=== PATIENT | female | born 1965 | race Caucasian/White ===

== ENCOUNTER 2017-06-01 19:02 | Emergency (ER) | payer BC ==
[2017-06-01] MEDS: PROPARACAINE HCL 0.5% OPHT SOLN 15 ML BTL EACH EYE (19:45)
== END 2017-06-01 20:41 | disposition home or self-care (01) ==
LOC: PHED 19:02
DX: H54.61 Unqualified visual loss, right eye, normal vision left eye (principal); F17.210 Nicotine dependence, cigarettes, uncomplicated; R94.31 Abnormal electrocardiogram [ECG] [EKG]
CPT/HCPCS: 93005; 99283